=== PATIENT | male | born 1985 | race Caucasian/White ===

== ENCOUNTER 2018-01-11 05:22 | Emergency (ER) | payer OTHER ==
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
[2018-01-11] MEDS ORDERED: DIPH,PERTUS(ACELL)TETVAC-LF 0.5 ML VIAL IM ONE (06:44)
[2018-01-11 07:08] VITALS: BP 133/70; PULSE 80; RESP 16; TEMP 97.3
== END 2018-01-11 07:08 | disposition home or self-care (01) ==
LOC: EC 05:22
DX: S02.2XXA Fracture of nasal bones, initial encounter for closed fracture (principal); F32.9 Major depressive disorder, single episode, unspecified; F17.200 Nicotine dependence, unspecified, uncomplicated; Z79.1 Long term (current) use of non-steroidal anti-inflammatories (NSAID); Z79.899 Other long term (current) drug therapy; Z88.0 Allergy status to penicillin; Y04.0XXA Assault by unarmed brawl or fight, initial encounter; Y92.009 Unspecified place in unspecified non-institutional (private) residence as the place of occurrence of the external cause
CPT/HCPCS: 70160; 99284